=== PATIENT | female | born 1985 | race American Indian/Alaskan Native ===

== ENCOUNTER 2016-09-01 10:32 | Outpatient (CLI) | payer MEDICAID ==
--- NOTE | 2016-09-01 13:03 | Fluoroscopy Report ---
FLUORO GUIDED HSG INDICATION: Essure placement approximately 5 years ago. Tubal ligation status evaluation. COMPARISON: None similar at this institution. FINDINGS: Hysterosalpingogram performed with cervix cannulated using standard sterile precautions. Preliminary radiograph demonstrates bilateral ESSURE devices. Small right hemipelvic phleboliths. Rectosigmoid stool. Injection of 10 cc of Omnipaque-300 under fluoroscopy demonstrates a normal size uterus, though positioned somewhat end-on with limited contour evaluation. No contrast within the fallopian tubes beyond bilateral ESSURE devices or free spillage into the peritoneal cavity seen. CONCLUSION: 1. Bilateral Essure devices without evidence of free intraperitoneal spillage, representing bilateral tubal occlusion. 2. Few other findings, as above. Thank you for the opportunity to participate in this patient's care.
== END 2016-09-01 10:33 | disposition home or self-care (01) ==
LOC: FLUORO 10:32
PROVIDERS: ATTEND Obstetrics & Gynecology
DX: I87.8 Other specified disorders of veins (principal); Z98.51 Tubal ligation status
CPT/HCPCS: 58340; 74740; 81025; Q9967

== ENCOUNTER 2016-12-02 17:43 | Emergency (ER) | payer MEDICAID, OTHER ==
--- NOTE | 2016-12-02 18:38 | Emergency Department Report ---
HPI - General Chief Complaint: Allergic Reaction Time Seen by Provider: 12/02/16 18:22 ED Past Medical Hx - Past Medical History Hx Hypertension: Yes (OUT OF MEDS X 1 WEEK) - Surgical History Past Surgical History?: No - Social History Smoking Status: Never Smoker Substance Use Type: Alcohol ED Review of Systems ROS: Stated complaint: ALLERGIC REACTION Other details as noted in HPI Physical Exam - Physical Exam Vital Signs: Vital Signs 12/02/16 18:02 Temperature 98.5 F Pulse Rate 71 Respiratory 18 Rate Blood Pressure 172/106 O2 Sat by Pulse 100 Oximetry ED Course Vital Signs 12/02/16 18:02 Temperature 98.5 F Pulse Rate 71 Respiratory 18 Rate Blood Pressure 172/106 O2 Sat by Pulse 100 Oximetry Critical care attestation.: If time is entered above; I have spent that time in minutes in the direct care of this critically ill patient, excluding procedure time. ED Disposition Condition: Stable
[2016-12-02] MEDS ORDERED: PEPCID IV ONE (18:45)
[2016-12-02] MEDS ORDERED: BENADRYL IV ONE (18:45)
--- NOTE | 2016-12-02 20:31 | Emergency Department Report ---
Entered by FUAD MAGALLANES, acting as scribe for RHETT BACON PA. ED Allergic Reaction HPI - General Chief complaint: Allergic Reaction Stated complaint: ALLERGIC REACTION Time Seen by Provider: 12/02/16 18:22 Source: patient Mode of arrival: Ambulatory Limitations: No Limitations - History of Present Illness Initial Comments: 31 y/o female with a PMHx of HTN presents to the ED c/o an allergic to reaction that began this afternoon at 17:00. Patient states she had an allergic reaction at 17:00 to Ibuprofen that she took at 14:00 for a headache. Associated symptoms includes hoarseness, chills, sore throat, and cough, but she denies any tongue swelling, facial swelling, chest pain, SOB, rash, fever, nausea, and vomiting. Rates sore throat a 7/10 in severity, which she describes as aching in quality. Aggravated with swallowing and alleviated with nothing. Took EpiPen with some relief. Reports she is out of HTN medication, Amlodipine and Lisinopril. Notes she has an appointment with her PCP, Dr. Wellington, tomorrow at [place]. Allergic to aspirin and penicillin. Complaint: allergic reaction, other -: This afternoon Time: 17:00 Exposure: medication (Ibuprofen) Symptoms: hoarseness, other (cough, chills, and sore throat). denies: rash, itching, facial swelling, lip swelling, difficulty swallowing, difficulty breathing, orolingual swelling, syncopy, dizziness, nausea, vomiting, abdominal pain Severity: moderate Treatment Prior to Arrival: epinephrine Previous Allergy History: prior ED visit(s), anaphylaxis (aspirin and penicillin ) - Related Data Previous Rx's Medication Instructions Recorded Last Taken Type Cetirizine HCl [ZyrTEC] 10 mg PO QAM #14 capsule 12/02/16 Unknown Rx methylPREDNISolone [Medrol] 4 mg PO QAM #1 tab.ds.pk 12/02/16 Unknown Rx Allergies Allergy/AdvReac Type Severity Reaction Status Date / Time aspirin Allergy Anaphylaxis Verified 12/02/16 17:58 peanut Allergy Hives Verified 12/02/16 17:59 Penicillins Allergy Anaphylaxis Verified 12/02/16 17:57 wheat Allergy Hives Verified 12/02/16 17:59 ED Review of Systems Comment: All other systems reviewed and negative Constitutional: chills. denies: fever Eyes: denies: eye pain, eye discharge, vision change ENT: throat pain, other (hoarseness). denies: ear pain, dental pain, hearing loss, epistaxis, congestion Respiratory: cough. denies: orthopnea, shortness of breath, SOB with exertion, SOB at rest, stridor, wheezing Cardiovascular: denies: chest pain, palpitations, dyspnea on exertion, orthopnea , edema, syncope, paroxysmal nocturnal dyspnea Endocrine: no symptoms reported Gastrointestinal: denies: abdominal pain, nausea, vomiting, diarrhea, constipation, hematemesis, melena, hematochezia Genitourinary: denies: urgency, dysuria, frequency, hematuria, discharge, abnormal menses Musculoskeletal: denies: back pain, joint swelling, arthralgia Skin: denies: rash, lesions Neurological: denies: headache, weakness, numbness, paresthesias, confusion, abnormal gait, vertigo ED Past Medical Hx - Past Medical History Previous Medical History?: Yes Hx Hypertension: Yes - Surgical History Past Surgical History?: No - Family History Family history: no significant - Social History Smoking Status: Never Smoker Substance Use Type: Alcohol - Medications Home Medications: Home Medications Medication Instructions Recorded Confirmed Last Taken Type Cetirizine HCl [ZyrTEC] 10 mg PO QAM #14 capsule 12/02/16 Unknown Rx methylPREDNISolone [Medrol] 4 mg PO QAM #1 tab.ds.pk 12/02/16 Unknown Rx ED Physical Exam - General Limitations: No Limitations General appearance: alert, in no apparent distress - Head Head exam: Present: atraumatic, normocephalic, normal inspection - Eye Eye exam: Present: normal appearance, PERRL, EOMI. Absent: scleral icterus, conjunctival injection, nystagmus, periorbital swelling, periorbital tenderness Pupils: Present: normal accommodation - ENT ENT exam: Present: normal exam, normal orophraynx, mucous membranes moist, TM's normal bilaterally, normal external ear exam - Expanded ENT Exam Expanded Ear exam: Present: normal external inspection Mouth exam: Present: normal external inspection (uvula is midline, oral airway is patent), tongue normal. Absent: drooling, trismus, muffled voice, tongue elevation, laceration Teeth exam: Present: normal inspection Throat exam: Positive: normal inspection. Negative: tonsillar erythema, tonsillomegaly, tonsillar exudate, R peritonsillar mass, L peritonsillar mass - Neck Neck exam: Present: normal inspection, full ROM, thyromegaly. Absent: tenderness, meningismus, lymphadenopathy - Expanded Neck Exam Expanded Neck exam: Absent: tenderness, midline deformity, anterior neck swelling, tracheal deviation - Respiratory Respiratory exam: Present: normal lung sounds bilaterally. Absent: respiratory distress, wheezes, rales, rhonchi, stridor, chest wall tenderness, accessory muscle use, decreased breath sounds, prolonged expiratory - Cardiovascular Cardiovascular Exam: Present: regular rate, normal rhythm, normal heart sounds. Absent: systolic murmur, diastolic murmur, S3, S4 - GI/Abdominal GI/Abdominal exam: Present: soft, normal bowel sounds. Absent: distended, tenderness, guarding, rebound, rigid - Extremities Exam Extremities exam: Present: normal inspection, full ROM, normal capillary refill. Absent: tenderness, pedal edema, joint swelling, calf tenderness - Back Exam Back exam: Present: normal inspection, full ROM. Absent: tenderness, CVA tenderness (R), CVA tenderness (L), muscle spasm, paraspinal tenderness, vertebral tenderness, rash noted - Neurological Exam Neurological exam: Present: alert, oriented X3, normal gait, reflexes normal. Absent: motor sensory deficit - Psychiatric Psychiatric exam: Present: normal affect, normal mood - Skin Skin exam: Present: warm, dry, intact, normal color. Absent: rash ED Course Vital Signs 12/02/16 12/02/16 18:02 19:44 Temperature 98.5 F Pulse Rate 71 72 Respiratory 18 Rate Blood Pressure 172/106 166/104 O2 Sat by Pulse 100 Oximetry Manual BP 160/100 - Reevaluation(s) Reevaluation #1: 12/02/16 20:16 Patient given clonidine 0.2 mg by mouth in emergency room for elevated blood pressure at 172/106. Patient says she takes lisinopril and Norvasc but she has not taken and she doesn't remember the dose and she has a primary care visit in the morning and her primary care is going to refill her medication. Patient was given Solu-Medrol 125 mg IV, Benadryl 50 mg IV and Pepcid 20 mg IV for allergic reaction from taken Motrin which she says she is allergic to aspirin. Reevaluation #2: 12/02/16 20:19 Blood pressure is better but still elevated and asymptomatic with elevated blood pressure ED Medical Decision Making - Medical Decision Making ED course:Pt reports that she has multiple allergies and she took some Motrin today and she is allergic to aspirin and she believes that she is having an allergic reaction. She says she took the Motrin around 2 and she started having symptoms around 5 PM. She says she took EpiPen at 5 PM she was complaining of hoarseness and chills with scratchy throat and pain in throat . Patient given clonidine 0.2 mg for elevated blood pressure and her blood pressure is now better but still elevated and she remains asymptomatic with elevated blood pressure. She was given Solu-Medrol 125 mg IV, Benadryl 50 mg IV and Pepcid 20 mg IV and emergency room and upon reevaluation patient says she is feeling better. Her lungs are clear, no stridor, tongue is normal oral airways patent and uvula is midline and her voice is clear. Parekh to follow up with her primary care physician tomorrow as scheduled and to take her blood pressure and take to primary care visit for reevaluation. She voiced understanding discharge diagnosis and treatment plan and discharged home with her family in stable condition. Assessment/plan 1. Minor allergic reaction, drug induced 2. Elevated blood pressure in patient with diagnoses of hypertension 3. Acute pharyngitis 4 acute laryngitis PT discharged home with prescription for Medrol Dosepak, Zyrtec,Prednisone. He will keep her primary care visit tomorrow. ED Disposition Clinical Impression: Laryngitis, Elevated blood pressure reading with diagnosis of hypertension Minor allergic reaction Qualifiers: Encounter type: initial encounter Qualified Code(s): T78.40XA - Allergy, unspecified, initial encounter Pharyngitis Qualifiers: Pharyngitis/tonsillitis etiology: unspecified etiology Qualified Code(s): J02.9 - Acute pharyngitis, unspecified Disposition: DC-01 TO HOME OR SELFCARE Is pt being admited?: No Does the pt Need Aspirin: No Condition: Stable Instructions: Hypertension (ED), Laryngitis (ED), Pharyngitis (ED), Adverse Drug Reaction (ED) Additional Instructions: do not take any medication that has aspirin or any NSAIDs. keep your appointment with primary care physician for tomorrow to have your medication refill and to follow-up hypertension Symptoms return, please return to the emergency room Used her EpiPen if needed Prescriptions: Cetirizine HCl [ZyrTEC] 10 mg PO QAM #14 capsule methylPREDNISolone [Medrol] 4 mg PO QAM #1 tab.ds.pk Referrals: PRIMARY CARE, [Primary Care Provider] - 12/03/16 Forms: Accompanied Note, Work/School Release Form(ED) This documentation as recorded by the ELPIDIO elizabeth JASMINE,accurately reflects the service I personally performed and the decisions made by ,RHETT BACON PA.
[2016-12-02 20:47] VITALS: BP 161/107
== END 2016-12-02 20:35 | disposition home or self-care (01) ==
LOC: ED 17:43
DX: T78.40XA Allergy, unspecified, initial encounter (principal); J02.9 Acute pharyngitis, unspecified; J04.0 Acute laryngitis; I10 Essential (primary) hypertension; Z88.6 Allergy status to analgesic agent; Z88.0 Allergy status to penicillin; Z91.018 Allergy to other foods; Z91.010 Allergy to peanuts
CPT/HCPCS: 96374; 96375; 99282; J1200; J2930

== ENCOUNTER 2017-03-17 15:56 | Emergency (ER) | payer OTHER ==
[2017-03-17] MEDS ORDERED: NORCO 5/325 PO ONE (17:57)
--- NOTE | 2017-03-17 18:00 | Emergency Department Report ---
Chief Complaint: Extremity Injury, Lower Stated Complaint: RIGHT TOE PAIN Time Seen by Provider: 03/17/17 17:27 - HPI History of Present Illness: Patient is a 31-year-old female who is presenting with right great toe pain. Patient states last night she was walking in the dark and hit her toe on some furniture in her bedroom. Patient states her pain was is a 10 out of 10. There is no deformity. Patient is unable to place a shoe on her foot. - ROS Review of Systems: Review of systems negative - Exam Vital Signs: Vital Signs 03/17/17 15:59 Temperature 98.4 F Pulse Rate 74 Respiratory 20 Rate Blood Pressure 154/108 O2 Sat by Pulse 99 Oximetry Physical Exam: Focused physical exam patient's right foot has some swelling to the base of the great toe as well as pain in this area on palpation. There are no other injuries MSE screening note: Focused history and physical exam performed. Due to findings the following was ordered: X-ray of the toe has been ordered with pain management. ED Disposition for MSE Condition: Stable Referrals: PRIMARY CARE [Primary Care Provider] - 3-5 Days
--- NOTE | 2017-03-17 18:55 | XRay Report ---
FINAL REPORT EXAM: XR TOE(S) 2+V RT HISTORY: great toe injury TECHNIQUE: 3 views right foot PRIORS: None. FINDINGS: No fracture or dislocation identified. Joint spaces are within normal limits. No radiopaque foreign body seen. No soft tissue abnormality identified. IMPRESSION: Negative foot series
[2017-03-17 20:08] VITALS: BP 130/84
== END 2017-03-17 20:11 | disposition home or self-care (01) ==
LOC: ED 15:56
DX: M79.674 Pain in right toe(s) (principal); M79.89 Other specified soft tissue disorders; Z88.6 Allergy status to analgesic agent; Z88.0 Allergy status to penicillin; Z91.010 Allergy to peanuts; Z91.018 Allergy to other foods; W22.03XA Walked into furniture, initial encounter; Y93.01 Activity, walking, marching and hiking; Y99.8 Other external cause status; Y92.092 Bedroom in other non-institutional residence as the place of occurrence of the external cause
CPT/HCPCS: 99283